=== PATIENT | female | born 1945 | race Two or more races ===

== ENCOUNTER 2022-07-12 18:56 | Emergency (ER) | payer MEDICAID, MEDICARE ==
[~2022-07-12] VITALS: Ht 121.9 cm; Wt 40.0 kg
[~2022-07-12 18:56] MED LIST: AZIT500T34 PO; CODEINE; GUAIFENESIN; NO HOME MEDS; OMEP20CA4 PO; [UNRECOGNIZED DRUG - OTHER]
[2022-07-12 18:58] VITALS: BP 164/67
--- NOTE | 2022-07-12 19:11 | NUR ---
Pt in [facility]. Pt c/o back pain that incrsed in pain x1 week. Pt chronic back pain. Pt traveled from [place] to [place]. Pt educated to [facility]. Pt in agreement. Pending providers eval and treatment.
[2022-07-12] MEDS ORDERED: cyclobenzaprine 10mg tablet PO ONE (20:10)
[2022-07-12] MEDS ORDERED: CYCL-1 PO (20:25)
[2022-07-12] MEDS ORDERED: ACET-1025 PO (20:25)
== END 2022-07-12 20:45 | disposition home or self-care (01) ==
LOC: ER 18:57
DX: S29.019A Strain of muscle and tendon of unspecified wall of thorax, initial encounter (principal); Z79.899 Other long term (current) drug therapy; X58.XXXA Exposure to other specified factors, initial encounter; Z88.0 Allergy status to penicillin; Y93.89 Activity, other specified; Y92.89 Other specified places as the place of occurrence of the external cause; Y99.8 Other external cause status
CPT/HCPCS: 99283